=== PATIENT | male | born 1985 | race Caucasian/White ===

== ENCOUNTER 2017-10-30 18:41 | Emergency (ER) | payer SELFPAY ==
[2017-10-30] MEDS ORDERED: cefTRIAXone\\ROCEPHIN 1 GM VIAL ONE (18:56)
[2017-10-30] MEDS ORDERED: Lidocaine 1% 20 ML MDV ONE (18:56)
== END 2017-10-30 19:35 | disposition home or self-care (01) ==
LOC: NAV ERS 18:41
DX: K04.7 Periapical abscess without sinus (principal); K02.9 Dental caries, unspecified; I10 Essential (primary) hypertension; E78.5 Hyperlipidemia, unspecified; F17.210 Nicotine dependence, cigarettes, uncomplicated
CPT/HCPCS: 96372; J0696; J2001

== ENCOUNTER 2018-12-24 11:18 | Emergency (ER) | payer SELFPAY ==
[2018-12-24] MEDS ORDERED: Fluorescein Opthalmic Strip ONE (11:32)
== END 2018-12-24 14:08 | disposition home or self-care (01) ==
LOC: NAV ERS 11:18
DX: T15.01XA Foreign body in cornea, right eye, initial encounter (principal); E78.5 Hyperlipidemia, unspecified; F17.210 Nicotine dependence, cigarettes, uncomplicated
CPT/HCPCS: 99283